=== PATIENT | female | born 1965 | race Caucasian/White ===

== ENCOUNTER 2018-10-28 11:53 | Emergency (ER) | payer OTHER ==
[~2018-10-28] VITALS: Ht 170.2 cm; Wt 79.4 kg
[~2018-10-28 11:53] MED LIST: CETI5 PO; MONT10T PO; OMEP40CA12 PO
[2018-10-28] MEDS ORDERED: TRAM50 PO (12:24)
[2018-10-28] MEDS ORDERED: ACET500 (12:25)
[2018-10-28] MEDS ORDERED: DOCU100 PO (12:25)
[2018-10-28] MEDS ORDERED: Gas-X125 MG PO (12:25)
== END 2018-10-28 14:31 | disposition home or self-care (01) ==
LOC: ER 11:53
DX: S09.90XA Unspecified injury of head, initial encounter (principal); S16.1XXA Strain of muscle, fascia and tendon at neck level, initial encounter; S70.01XA Contusion of right hip, initial encounter; R11.0 Nausea; V43.52XA Car driver injured in collision with other type car in traffic accident, initial encounter; Z88.2 Allergy status to sulfonamides; Z88.8 Allergy status to other drugs, medicaments and biological substances; Z88.1 Allergy status to other antibiotic agents; Z88.0 Allergy status to penicillin; Z79.899 Other long term (current) drug therapy
CPT/HCPCS: 72125; 99284-25

== ENCOUNTER 2021-01-31 11:08 | Emergency (ER) | payer OTHER ==
[~2021-01-31] VITALS: Ht 170.2 cm; Wt 86.2 kg
[~2021-01-31 11:08] MED LIST changes: +ACET500; +DOCU100 PO; +Gas-X125 MG PO; +TRAM50 PO
[2021-01-31] MEDS ORDERED: CYCL10 PO (11:40)
[2021-01-31] MEDS ORDERED: VITAMINS (11:41)
[2021-01-31] MEDS ORDERED: ARMOUR THYROID120 M1 PO (11:41)
[2021-01-31 11:52] LABS: BASOPHILS ABSOLUTE AUTO 0.03 K/mm3 (0.00-0.23); BASOPHILS PERCENT AUTO 1 % (0-2); EOSINOPHILS PERCENT AUTO 5 % (0-6); Hematocrit 43.4 % (33.0-51.0); Hemoglobin 14.8 g/dL (11.5-16.0); IMMATURE GRAN ABSOLUTE AUTO 0.01 K/mm3 (0.00-0.10); IMMATURE GRAN PERCENT AUTO 0 % (0-1); LYMPHOCYTES ABSOLUTE AUTO 2.02 K/mm3 (0.84-5.20); LYMPHOCYTES PERCENT AUTO 34 % (21-46); MONOCYTES ABSOLUTE AUTO 0.65 K/mm3 (0.16-1.47); MONOCYTES PERCENT AUTO 11 % (4-13); Mean Corpuscular HGB 31.7 pg (26.0-34.0); Mean Corpuscular HGB Conc 34.1 g/dL (31.5-36.5); Mean Corpuscular Volume 93 fL (80-100); Mean Platelet Volume 9.7 fL (9.1-12.4); NEUTROPHILS ABSOLUTE AUTO 2.86 K/mm3 (1.96-9.15); NEUTROPHILS PERCENT AUTO 49 % (41-73); Platelet Count 248 K/mm3 (150-400); RDW Standard Deviation 37.3 fL (35.1-46.3); Red Blood Cell Count 4.67 M/mm3 (3.80-5.20); White Blood Cell Count 5.87 K/mm3 (4.00-11.30)
[2021-01-31 12:08] LABS: Free Thyroxine 1.06 ng/dL (0.70-1.60)
[2021-01-31 12:09] LABS: Alanine Aminotransfer (ALT/SGP 42 U/L (12-78); Albumin, Blood 3.6 g/dL (3.4-5.0); Albumin/Globulin Ratio 0.9 (0.8-1.8); Alk Phos 84 U/L (50-136); Anion Gap 9 mmol/L (6-16); Aspartate Aminotrans (AST/SGOT 17 U/L (12-37); Bilirubin, Total 0.3 mg/dL (0.1-1.0); Blood Urea Nitrogen 14 mg/dL (8-24); CO2, Blood 25 mmol/L (21-32); Chloride, Blood 113 mmol/L (98-108); Creatinine, Blood 0.58 mg/dL (0.40-1.00); Globulin, Blood 3.8 g/dL (2.2-4.0); Glomerular Filtration Rate >60 (60-); Glucose, Blood 82 mg/dL (70-99); Potassium, Blood 3.8 mmol/L (3.5-5.5); Sodium, Blood 147 mmol/L (136-145); Thyroid Stimulating Hormone <0.005 uIU/mL (0.360-4.800); Total Protein, Blood 7.4 g/dL (6.4-8.2)
[2021-01-31] MEDS ORDERED: ALBU90OI INH (13:37)
[2021-01-31] MEDS ORDERED: QVAR REDIHALE10.6 G2 INH (13:37)
[2021-01-31] MEDS ORDERED: Naltrexone HCl50 MG PO (13:37)
== END 2021-01-31 13:55 | disposition home or self-care (01) ==
LOC: ER 11:08
PROVIDERS: Emergency Medicine
DX: I48.91 Unspecified atrial fibrillation (principal); Z79.51 Long term (current) use of inhaled steroids; Z79.899 Other long term (current) drug therapy
CPT/HCPCS: 36415; 71045; 80053; 84439; 84443; 85025; 92960; 93005; 93010; 99285-25; A9270; J2704; J7030

== ENCOUNTER 2023-02-12 04:34 | Emergency (ER) | payer OTHER ==
[~2023-02-12] VITALS: Ht 170.2 cm; Wt 81.7 kg
[~2023-02-12 04:34] MED LIST changes: +ALBU90OI INH; +ARMOUR THYROID120 M1 PO; +CYCL10 PO; +Naltrexone HCl50 MG PO; +QVAR REDIHALE10.6 G2 INH; +VITAMINS
[2023-02-12 05:42] LABS: BASOPHILS ABSOLUTE AUTO 0.03 K/mm3 (0.00-0.23); BASOPHILS PERCENT AUTO 0 % (0-2); EOSINOPHILS ABSOLUTE AUTO 0.14 K/mm3 (0.00-0.68); EOSINOPHILS PERCENT AUTO 2 % (0-6); Hematocrit 40.7 % (33.0-51.0); Hemoglobin 13.6 g/dL (11.5-16.0); IMMATURE GRAN ABSOLUTE AUTO 0.02 K/mm3 (0.00-0.10); IMMATURE GRAN PERCENT AUTO 0 % (0-1); LYMPHOCYTES ABSOLUTE AUTO 0.72 K/mm3 (0.84-5.20); LYMPHOCYTES PERCENT AUTO 10 % (21-46); MONOCYTES ABSOLUTE AUTO 0.75 K/mm3 (0.16-1.47); MONOCYTES PERCENT AUTO 10 % (4-13); Mean Corpuscular HGB 31.7 pg (26.0-34.0); Mean Corpuscular HGB Conc 33.4 g/dL (31.5-36.5); Mean Corpuscular Volume 95 fL (80-100); Mean Platelet Volume 9.4 fL (9.1-12.4); NEUTROPHILS ABSOLUTE AUTO 5.86 K/mm3 (1.96-9.15); NEUTROPHILS PERCENT AUTO 78 % (41-73); Platelet Count 204 K/mm3 (150-400); RDW Coefficient Variation 11.8 % (11.7-14.2); RDW Standard Deviation 41.2 fL (35.1-46.3); Red Blood Cell Count 4.29 M/mm3 (3.80-5.20); White Blood Cell Count 7.52 K/mm3 (4.00-11.30)
[2023-02-12 06:03] LABS: Albumin/Globulin Ratio 1.1 (0.8-1.8); Bilirubin, Total 0.4 mg/dL (0.1-1.0); Calcium, Blood 8.8 mg/dL (8.5-10.1); Creatinine, Blood 0.8 mg/dL (0.40-1.00); Globulin, Blood 3.7 g/dL (2.2-4.0); Potassium, Blood 3.9 mmol/L (3.5-5.5); Total Protein, Blood 7.7 g/dL (6.4-8.2)
[2023-02-12 06:04] LABS: Source, Urine Clean Catch
[2023-02-12 06:14] LABS: Appearance, Urine Clear (Clear); Bilirubin, Urine Neg (Neg); Blood, Urine 2+ (Neg); Color, Urine Yellow (P-Yellow); Glucose Qualitative, Urine Neg (Neg); Ketones, Urine Neg (Neg); Leukocyte Esterase, Urine Neg (Neg); Nitrite, Urine Neg (Neg); Protein, Urine Neg (Neg); Specific Gravity, Urine 1.015 (1.003-1.022); Urobilinogen, Urine NORM (Normal)
[2023-02-12 06:22] LABS: Squamous Epithelial Cells Many /hpf (Few); White Blood Cells, Urine 0-2 /hpf (0-5)
[2023-02-12 06:23] LABS: Bacteria Few /hpf
[2023-02-12 09:01] VITALS: BP 151/81
[2023-02-12 09:04] LABS: Influenza A, PCR NEGATIVE (NEGATIVE); Influenza B, PCR NEGATIVE (NEGATIVE); Resp Syncytial Virus, PCR NEGATIVE (NEGATIVE)
[2023-02-12 09:08] LABS: SARS-Cov-2 (COVID-19) PCR, MMC POSITIVE (NEGATIVE)
[2023-02-12] MEDS ORDERED: PAXLOVID 150-11 EACH PO (09:20)
== END 2023-02-12 09:44 | disposition home or self-care (01) ==
LOC: ER 04:34
PROVIDERS: Emergency Medicine; Student in an Organized Health Care Education/Training Program
DX: U07.1 COVID-19 (principal); J45.909 Unspecified asthma, uncomplicated; E03.9 Hypothyroidism, unspecified; Z88.0 Allergy status to penicillin; Z88.1 Allergy status to other antibiotic agents; Z88.2 Allergy status to sulfonamides; Z79.899 Other long term (current) drug therapy
CPT/HCPCS: 0241U; 36415; 71046; 80053; 81001; 83690; 85025; 96374; 99284-25; J2405; J7030

== ENCOUNTER 2024-02-24 15:37 | Inpatient (IN) | payer OTHER ==
[~2024-02-24] VITALS: Ht 170.2 cm; Wt 84.6 kg
[~2024-02-24 15:37] MED LIST changes: +CLIN15SU PO; +HYDROCODONE-AC473 ML PO; +PAXLOVID 150-11 EACH PO
[2024-02-24] MEDS ORDERED: NS 1,000 ML IV SCH ×2 (16:10→19:15)
[2024-02-24] MEDS ORDERED: Clindamycin 900mg in D5W 50ML 50 ML IV ONE (16:25)
[2024-02-24] MEDS ORDERED: HYDROmorphone HCl/Pf 1MG SYR IV PRN (19:15)
[2024-02-24] MEDS ORDERED: Ondansetron HCl 2 MG / ML 2ML Vial IV PRN (19:15)
[2024-02-24] MEDS ORDERED: Acetaminophen 325 MG TABLET PO PRN (19:20)
[2024-02-24] MEDS ORDERED: Albuterol 2.5 MG/3 ML VIAL INH PRN (19:20)
[2024-02-24] MEDS ORDERED: Clindamycin 900mg in D5W 50ML 50 ML IV SCH (19:30)
[2024-02-24 20:45] VITALS: BP 155/84
[2024-02-24] MEDS ORDERED: Dexamethasone Sodium Phosphate 4 MG/ML 5ML VIAL IV SCH (21:00)
[2024-02-24] MEDS ORDERED: Dexamethasone Sod Phos 10 MG/ML 1ML VIAL IV SCH (21:00)
[2024-02-24 23:30] VITALS: BP 143/72
[2024-02-25 03:46] VITALS: BP 130/77
[2024-02-25 04:20] LABS: BASOPHILS ABSOLUTE AUTO 0.02 K/mm3 (0.00-0.23); BASOPHILS PERCENT AUTO 0 % (0-2); EOSINOPHILS PERCENT AUTO 0 % (0-6); Hematocrit 36.6 % (33.0-51.0); Hemoglobin 12.1 g/dL (11.5-16.0); IMMATURE GRAN ABSOLUTE AUTO 0.06 K/mm3 (0.00-0.10); IMMATURE GRAN PERCENT AUTO 1 % (0-1); LYMPHOCYTES ABSOLUTE AUTO 0.57 K/mm3 (0.84-5.20); LYMPHOCYTES PERCENT AUTO 6 % (21-46); MONOCYTES ABSOLUTE AUTO 0.32 K/mm3 (0.16-1.47); MONOCYTES PERCENT AUTO 3 % (4-13); Mean Corpuscular HGB 31.3 pg (26.0-34.0); Mean Corpuscular HGB Conc 33.1 g/dL (31.5-36.5); Mean Corpuscular Volume 95 fL (80-100); NEUTROPHILS ABSOLUTE AUTO 9.33 K/mm3 (1.96-9.15); NEUTROPHILS PERCENT AUTO 91 % (41-73); Platelet Count 198 K/mm3 (150-400); RDW Standard Deviation 41.8 fL (35.1-46.3); Red Blood Cell Count 3.86 M/mm3 (3.80-5.20)
[2024-02-25 04:34] LABS: International Normalized Ratio 1.06; Prothrombin Time Results 11.3 Sec (9.7-11.5)
[2024-02-25 04:44] LABS: Albumin, Blood 3.3 g/dL (3.4-5.0); Albumin/Globulin Ratio 0.9 (0.8-1.8); Bilirubin, Total 0.4 mg/dL (0.1-1.0); Bun/Creatinine Ratio 27.5 (12.0-20.0); Calcium, Blood 8.8 mg/dL (8.5-10.1); Creatinine, Blood 0.51 mg/dL (0.40-1.00); Globulin, Blood 3.6 g/dL (2.2-4.0); Potassium, Blood 3.9 mmol/L (3.5-5.5); Total Protein, Blood 6.9 g/dL (6.4-8.2)
--- NOTE | 2024-02-25 05:30 | NUR ---
ASSUMED CARE OF PT UPON ARRIVAL FROM ED. ALERT AND ORIENTED x4, C/O RIGHT JAW PAIN, TREATED WITH PRN PAIN MEDS PER ORDERS WITH ADEQUATE RELIEF. PT HEMODYNAMICALLY STABLE. AFEBRILE. SCD'S ON. SP02 > 95% ON RA. TOLERATING CLEAR LIQUIDS ONCE PAIN MANAGED. SKIN IS INTACT. PT UP INDEPENDENTLY. IVF INFUSING PER ORDERS.
[2024-02-25 07:45] VITALS: BP 116/71
[2024-02-25] MEDS ORDERED: NS 250 ML IV PRN (08:35)
[2024-02-25] MEDS ORDERED: Enoxaparin 40 MG/0.4 ML SYR SC SCH (09:00)
[2024-02-25] MEDS ORDERED: Lactobacil 2-S.Thermo-Bifido 1 1 Cap PO SCH (09:00)
--- NOTE | 2024-02-25 09:30 | NUR ---
ASSUMPTION OF CARE ASSUMED CARE AT APPROX 0715. PATIENT SLEEPING DURING INITIAL ENCOUNTER, EASILY AROUSABLE TO VERBAL STIMULI. ALERT AND ORIENTED X4. INDEPENDENT IN ROOM, WITH ALL ADLs. COMMUNICATES NEEDS EFFECTIVELY. IS NOW MEDICAL STATUS WITHOUT TELEMETRY. VSS. AFEBRILE. REPORTS THAT R JAW PAIN IS IMPROVING, IS NOW ABLE TO TOLERATE PO INTAKE. REDNESS, INFLAMMATION IMPROVED. MANAGING PAIN PER EMAR WITH PO TYLENOL AND IV DILAUDID PRN. IV ABX AND IV STEROIDS ADMINISTERED PER EMAR WITH MORNING. CALL LIGHT IN REACH.
--- NOTE | 2024-02-25 13:19 | NUR ---
PER MD MARRERO, PATIENT IS NOT GOING TO BE SEEN BY ENT WHILE IN HOSPITAL. PLAN IS TO FOLLOW UP OUTPATIENT AT DISCHARGE.
--- NOTE | 2024-02-25 13:41 | NUR ---
REPORT GIVEN TO NAUN RN TO ASSUME CARE AT 1400
--- NOTE | 2024-02-25 14:16 | NUR ---
BED AVAILABILITY ON MEDICAL FLOOR. REPORT GIVEN TO ACCEPTING RN.
--- NOTE | 2024-02-25 14:43 | NUR ---
ASSUMED CARE-1425 PT ARRIVED TO MEDICAL FLOOR FROM PCU. TRANSFERRED FROM WHEELCHAIR TO THE HOSPITAL BED INDEPENDENTLY. A&OX4 ON ROOM AIR. ALL QUESTIONS WERE ABLE TO BE ANSWERED APPROPRIATELY WITHOUT CONCERN.
[2024-02-25 15:39] VITALS: BP 143/80
--- NOTE | 2024-02-25 16:37 | NUR ---
Jameel is sitting on the EOB and aert. She talks about the events that led to her admission to the hospital and her current condition. She then talks about her family, her [employer] mar[employer] and her hopes for the future. I provide therapeutic listening and prayer. Patient responded well and showed sign of an elevated mood.
--- NOTE | 2024-02-25 17:52 | NUR ---
SHIFT SUMMARY PT IS A&OX4 ON ROOM AIR W/NO RESPIRATORY DISTRESS. INDEPENDENT IN THE ROOM. PT ATE HER FULL LIQUID DIET FOR DINNER HER REGULAR DINNER DIET ARRIVED TOO LATE. PT STATED SHE DOES NOT THINK EATING A REGULAR DIET IS GOING TO BE FEASIBLE IT IS CAUSING QUITE A BIT OF PAIN TO CHEW. PAIN HAS BEEN CONTROLLED WITH DILADID 0.5 MG. NO OTHER CONCERNS AT THIS TIME.
[2024-02-25 19:43] VITALS: BP 130/68
[2024-02-26 03:05] VITALS: BP 107/70
--- NOTE | 2024-02-26 04:58 | NUR ---
SKILLED HELPER: PT IS A&OX4, VITALS ARE STABLE. PT COMPLAINED OF PAIN WHEN TALKING OR SWOLLING. PRN TYLENOL AND DILAUDID GIVEN. PT ALSO COMPLAIN OF ITCHING ALL OVER BODY. SHE SAID IT'S NOT NEW THAT SHE ITCHES IT HOME SOMETIMES BUT SHE TAKES CLARITIN OR ZYRTEC TO RELIEVE THE ITCHING WHEN HOME. WAS NOTIFIED.
[2024-02-26 07:27] VITALS: BP 116/73
[2024-02-26] MEDS ORDERED: FentaNYL Citrate 50 MCG/ML 2 ML Injection IV PRN (07:30)
[2024-02-26] MEDS ORDERED: HYDROcodone 5-APAP 325 TAB PO PRN (07:35)
[2024-02-26] MEDS ORDERED: LACT PO (13:16)
[2024-02-26] MEDS ORDERED: LORA1SY PO (13:17)
[2024-02-26] MEDS ORDERED: PRED5EL PO (13:18)
--- NOTE | 2024-02-26 15:31 | NUR ---
PT AWAKE AT START OF SHIFT FOR REPORT. ADMITTED FOR SIALOADENITIS. PT IMPROVING SLOWLY, STILL HAVING ALOT OF PAIN INSIDE R SIDE OF JAW. PT ABLE TO ADJUST DIET TO BE ABLE TO EAT. DR MARRERO IN TO SEE PT AND DISCUSS PLAN OF CARE. PT ABLE TO D/C TO HOME WITH LIQUID ABX. [facility] NOTIFIED FOR AND CONFIRMED AVAILABILITY. PT INDEPENDENT IN RM. CALLED FOR RIDE WHEN D/C COMPLETE. PT ASSISTED OUT TO CAR VIA W/C WITH ALL BELONGINGS.
== END 2024-02-26 15:02 | disposition home or self-care (01) | DRG 156 ==
LOC: ER 15:37 → MEDS 19:14 → PCU 19:14 → MEDS 02-25 14:24 → ENPENDDIS 02-26 10:00 → MEDS 02-26 11:15
PROVIDERS: Nurse Practitioner Acute Care; ADMIT Internal Medicine
DX: K11.21 Acute sialoadenitis (principal); J45.909 Unspecified asthma, uncomplicated; E03.9 Hypothyroidism, unspecified; M79.7 Fibromyalgia; F32.A Depression, unspecified; Z87.442 Personal history of urinary calculi; Z88.2 Allergy status to sulfonamides; Z88.1 Allergy status to other antibiotic agents; Z88.8 Allergy status to other drugs, medicaments and biological substances; Z79.2 Long term (current) use of antibiotics; Z79.899 Other long term (current) drug therapy; Z79.891 Long term (current) use of opiate analgesic; M54.50 Low back pain, unspecified; G89.29 Other chronic pain; G43.909 Migraine, unspecified, not intractable, without status migrainosus; Z86.14 Personal history of Methicillin resistant Staphylococcus aureus infection; Z90.710 Acquired absence of both cervix and uterus; Z90.89 Acquired absence of other organs; Z98.51 Tubal ligation status; Z98.890 Other specified postprocedural states
CPT/HCPCS: 36415; 80053; 85025; 85610; 94760; 96360; 99284-25; A9270; J1100; J1170; J1650; J7030; J7050

== ENCOUNTER 2024-07-14 10:21 | Emergency (ER) | payer OTHER ==
[~2024-07-14] VITALS: Ht 170.2 cm; Wt 86.2 kg
[~2024-07-14 10:21] MED LIST changes: +LACT PO; +LORA1SY PO; +PRED5EL PO
[2024-07-14 11:13] LABS: BASOPHILS ABSOLUTE AUTO 0.07 K/mm3 (0.00-0.23); BASOPHILS PERCENT AUTO 1 % (0-2); EOSINOPHILS ABSOLUTE AUTO 0.34 K/mm3 (0.00-0.68); EOSINOPHILS PERCENT AUTO 6 % (0-6); Hematocrit 43.6 % (33.0-51.0); Hemoglobin 14.4 g/dL (11.5-16.0); IMMATURE GRAN ABSOLUTE AUTO 0.01 K/mm3 (0.00-0.10); IMMATURE GRAN PERCENT AUTO 0 % (0-1); LYMPHOCYTES ABSOLUTE AUTO 1.87 K/mm3 (0.84-5.20); LYMPHOCYTES PERCENT AUTO 30 % (21-46); MONOCYTES PERCENT AUTO 8 % (4-13); Mean Corpuscular HGB 31.8 pg (26.0-34.0); Mean Corpuscular Volume 96 fL (80-100); NEUTROPHILS ABSOLUTE AUTO 3.37 K/mm3 (1.96-9.15); NEUTROPHILS PERCENT AUTO 55 % (41-73); Platelet Count 228 K/mm3 (150-400); RDW Coefficient Variation 12.1 % (11.7-14.2); RDW Standard Deviation 43.1 fL (35.1-46.3); Red Blood Cell Count 4.53 M/mm3 (3.80-5.20); White Blood Cell Count 6.16 K/mm3 (4.00-11.30)
[2024-07-14 12:27] LABS: Albumin, Blood 3.8 g/dL (3.4-5.0); Bilirubin, Total 0.4 mg/dL (0.1-1.0); Bun/Creatinine Ratio 21.7 (12.0-20.0); Calcium, Blood 9.2 mg/dL (8.5-10.1); Creatinine, Blood 0.69 mg/dL (0.40-1.00); Globulin, Blood 3.9 g/dL (2.2-4.0); Potassium, Blood 3.8 mmol/L (3.5-5.5); Total Protein, Blood 7.7 g/dL (6.4-8.2)
[2024-07-14] MEDS ORDERED: Acetaminophen 500 MG Tab PO ONE (13:55)
[2024-07-14 15:00] VITALS: BP 154/79
[2024-07-14] MEDS ORDERED: ACET500 PO (15:02)
== END 2024-07-14 15:10 | disposition home or self-care (01) ==
LOC: ER 10:21
PROVIDERS: Physician Assistant
DX: R07.89 Other chest pain (principal); Z88.8 Allergy status to other drugs, medicaments and biological substances; Z88.0 Allergy status to penicillin; Z91.011 Allergy to milk products; Z79.899 Other long term (current) drug therapy; Z79.52 Long term (current) use of systemic steroids; E03.9 Hypothyroidism, unspecified; J45.909 Unspecified asthma, uncomplicated; G43.909 Migraine, unspecified, not intractable, without status migrainosus
CPT/HCPCS: 71046; 80053; 84484; 85025; 93005; 93010; 99285-25; A9270